=== PATIENT | female | born 1985 | race Hispanic/Latino ===

== ENCOUNTER 2017-10-17 18:34 | Inpatient (IN) | payer OTHER ==
[~2017-10-17] VITALS: Ht 152.4 cm; Wt 60.3 kg
[2017-10-17] MEDS ORDERED: LACTATED RINGERS 1000ML 1,000 ML IV PRN (19:49)
[2017-10-17] MEDS ORDERED: NALOXONE HCL 0.4 MG/1 ML ML IV PRN (20:00)
[2017-10-17] MEDS ORDERED: EPHEDRINE SULFATE 50 MG/ML AMPULE IVP PRN (20:00)
[2017-10-17] MEDS ORDERED: LACTATED RINGERS 500 ML 500 ML IV PRN (20:00)
[2017-10-17] MEDS ORDERED: OXYTOCIN 10 USP UNITS/ML 20 UNIT in LACTATED RINGERS 1000ML 1,000 ML IV SCH (20:00)
[2017-10-17 20:54] LABS: HEMATOCRIT 35.4 % (36-48); MEAN CORPUSCULAR HEMOGLOBIN 28.6 pg (27.0-33.0); MEAN CORPUSCULAR HGB CONC 33.9 g/dL (32.0-36.0); MEAN CORPUSCULAR VOLUME 84.6 fL (79-99); PLATELET COUNT (AUTO) 237 K/uL (130-400); RED BLOOD CELL COUNT(AUTO) 4.19 MIL/uL (4.00-5.50); RED CELL DISTRIBUTION WIDTH 13.6 % (11.0-15.5); WHITE BLOOD COUNT (AUTO) 8.3 K/uL (4.8-10.8)
[2017-10-17 21:15] LABS: BILIRUBIN,URINE Negative (NEGATIVE); COLOR,URINE Yellow (YELLOW); GLUCOSE, URINE (UA) Negative (NEGATIVE); KETONES,URINE Negative (NEGATIVE); LEUKOCYTE ESTERASE ,URINE Large (NEGATIVE); NITRATE,URINE Negative (NEGATIVE); OCCULT BLOOD,URINE Moderate (NEGATIVE); PH,URINE 6.5 (5.0-8.0); PROTEIN,URINE Negative (NEGATIVE)
[2017-10-17 21:18] LABS: APPEARANCE,URINE SLIGHTLY CLOUDY (CLEAR)
[2017-10-17 21:24] LABS: BACTERIA,URINE Few /HPF (None Seen); RBC,URINE 0-1 /HPF (0-1)
[2017-10-17 21:25] LABS: SQUAMOUS EPITHELIAL CELL,UR Moderate /HPF (0-2)
[2017-10-18] MEDS ORDERED: OXYTOCIN 10 USP UNITS/ML ONE ×2 (02:36→12:06)
[2017-10-18] MEDS ORDERED: LACTATED RINGERS 1000ML 1,000 ML IV ONE (02:36)
[2017-10-18] MEDS ORDERED: OXYTOCIN 10 USP UNITS/ML 20 UNIT in DEXTROSE 5 %-0.45 % NACL 1,000 ML IV SCH (03:00)
[2017-10-18] MEDS ORDERED: ROPIVACAINE 0.2%200ML EPIDURAL 200 ML EP SCH (03:00)
[2017-10-18] MEDS ORDERED: BUTORPHANOL TARTRATE 2 MG/ML IVP PRN (04:15)
[2017-10-18] MEDS ORDERED: BUTORPHANOL TARTRATE 2 MG/ML ONE (04:19)
[2017-10-18] MEDS ORDERED: ACETAMINOPHEN 325 MG TAB PO PRN (11:30)
[2017-10-18] MEDS ORDERED: MEASLES/MUMPS/RUBELLA VACCINE, LIVE 0.5 ML/VIAL SQ PRN (11:30)
[2017-10-18] MEDS ORDERED: DIPH,PERTUSS(ACELL),TET VAC/PF 0.5 ML VIAL IM PRN (11:30)
[2017-10-18] MEDS ORDERED: LANOLIN 30GM OINTMENT TP PRN (11:30)
[2017-10-18] MEDS ORDERED: WITCH HAZEL 1 PAD TP PRN (11:30)
[2017-10-18] MEDS ORDERED: ACETAMINOPHEN-CODEINE 300/30MG TAB PO PRN (11:30)
[2017-10-18] MEDS ORDERED: BENZOCAINE/LANOLIN/ALOE VERA 60 ML AEROSOL TP PRN (11:30)
[2017-10-18 13:13] VITALS: BP 125/59
[2017-10-18] MEDS: IBUPROFEN 600 MG TABLET PO PRN (13:53)
[2017-10-18 16:16] VITALS: BP 130/86
[2017-10-18 19:36] VITALS: BP 119/59
[2017-10-18] MEDS: DOCUSATE SODIUM 100 MG CAP PO SCH (20:46)
[2017-10-18 23:56] VITALS: BP 106/64
[2017-10-19] MEDS: IBUPROFEN 600 MG TABLET PO PRN ×3 (00:06→22:26)
[2017-10-19 03:57] VITALS: BP 107/67
[2017-10-19 07:40] VITALS: BP 110/72
[2017-10-19] MEDS: DOCUSATE SODIUM 100 MG CAP PO SCH ×2 (09:19→22:22)
[2017-10-19 10:22] LABS: HEPATITIS Bs ANTIGEN SCREEN P Negative (Negative)
[2017-10-19 11:50] VITALS: BP 120/77
[2017-10-19 15:46] VITALS: BP 112/64
[2017-10-19 19:38] VITALS: BP 113/70
[2017-10-19 23:23] VITALS: BP 115/73
[2017-10-20 03:46] VITALS: BP 103/67
[2017-10-20 07:31] VITALS: BP 116/72
[2017-10-20] MEDS: DOCUSATE SODIUM 100 MG CAP PO SCH (09:27)
[2017-10-20] MEDS: IBUPROFEN 600 MG TABLET PO PRN (09:28)
[2017-10-20 11:38] VITALS: BP 116/70
[2018-10-17] MEDS ORDERED: BUPIVACAINE/EPI/PF 0.25% 30ML VIAL IJ ONE (12:00)
== END 2017-10-20 14:25 | disposition home or self-care (01) | DRG 775 ==
LOC: OBSVTOIN 18:34 → LDH 18:34 → WSH 10-18 13:10
PROVIDERS: ADMIT Obstetrics & Gynecology; ATTEND Obstetrics & Gynecology
PROC: 0KQM0ZZ Repair Perineum Muscle, Open Approach (ICD-10-PCS; principal; 2017-10-18)
PROC: 10D07Z3 Extraction of Products of Conception, Low Forceps, Via Natural or Artificial Opening (ICD-10-PCS; 2017-10-18)
PROC: 3E0R3BZ Introduction of Anesthetic Agent into Spinal Canal, Percutaneous Approach (ICD-10-PCS; 2017-10-18)
PROC: 00HU33Z Insertion of Infusion Device into Spinal Canal, Percutaneous Approach (ICD-10-PCS; 2017-10-18)
PROC: 10907ZC Drainage of Amniotic Fluid, Therapeutic from Products of Conception, Via Natural or Artificial Opening (ICD-10-PCS; 2017-10-18)
DX: O76 Abnormality in fetal heart rate and rhythm complicating labor and delivery (principal); O70.1 Second degree perineal laceration during delivery; Z37.0 Single live birth; Z3A.37 37 weeks gestation of pregnancy; Z23 Encounter for immunization; Z28.21 Immunization not carried out because of patient refusal
CPT/HCPCS: 36415; 81001; 85027; 86592; 86850; 86900; 86901; 87340; A4314; A4351; A4606; J0595; J2590; J3490; J7120